=== PATIENT | male | born 1980 | race Caucasian/White ===

== ENCOUNTER 2017-01-07 14:11 | Emergency (ER) | payer OTHER | END 2017-01-07 16:00 | disposition left against medical advice (07) | LOC: ER1 14:11 | DX: Z53.21 Procedure and treatment not carried out due to patient leaving prior to being seen by health care provider (principal) ==

== ENCOUNTER → 2017-01-08 | Outpatient (CLI) | payer OTHER | LOC: RAD 17:07 | DX: M54.2 Cervicalgia (principal); M54.9 Dorsalgia, unspecified; R05 Cough; M47.816 Spondylosis without myelopathy or radiculopathy, lumbar region | CPT/HCPCS: 71020; 72050; 72072; 72110 ==